=== PATIENT | male | born 1970 | race Caucasian/White ===

== ENCOUNTER 2022-11-13 17:16 | Inpatient (IN) | payer MEDICAID, SELFPAY ==
[2022-11-13 17:18] VITALS: BP 148/104; PULSE 124; RESP 18; TEMP 36.5; O2SAT 96; BMI 24.2
--- NOTE | 2022-11-13 17:29 | EX.ED.SAOD ---
HPI History of Present Illness Chief Complaint: Substance Abuse Detail of Chief Complaint: Alcohol detox Informant: patient Narrative Narrative: Patient presents to the emergency department requesting detox from alcohol. Patient states that he normally drinks at least 1024 ounce cans of hard cider daily. Patient last went through detox in March but at a different facility. Patient smokes marijuana occasionally. He is a smoker of cigarettes. Patient denies any abdominal pain or vomiting. His last drink was prior to arrival in the emergency department. [facility] Medical History (Updated 11/13/22 @ 18:[address] Constanza Osorio, ) Alcoholism High cholesterol HTN (hypertension) Allergy/AdvReac Type Severity Reaction Status Date / Time No Known Allergies Allergy Verified 11/13/22 17:18 Social History Smoking Status: Current every day smoker tobacco type: cigarettes ROS ROS ED Constitutional Constitutional ED: Reports systems reviewed and no addt'l complaints, except as documented; Denies body ache(s), change in weight or chills Eyes Eyes: Denies acute decrease in peripheral vision, change in vision, double vision or loss of vision ENT ENT ED: Reports none; Denies ear pain, lip swelling, loss taste/smell, neck pain, otalgia or sore throat Cardiovascular Cardiovascular: Reports none; Denies abdominal pain, chest pain with activity, leg edema, lightheadedness, palpitations, rapid heart rate or syncope Respiratory/Chest Respiratory/Chest: Reports none; Denies change in mental status, dry cough, dyspnea, hemoptysis, shortness of breath at rest or shortness of breath with exertion Gastrointestinal Gastrointestinal: Reports none; Denies abdominal pain, change in stool character, diarrhea, hematemesis, hematochezia, melena, rectal bleeding or vomiting Genitourinary Genitourinary ED: Reports none; Denies abdominal discomfort, anuria, dysuria, genital pain or polyuria Musculoskeletal Musculoskeletal: Reports none; Denies arthralgias, back pain, difficulty walking, extremity pain, muscle weakness or myalgias Integumentary Reports none; Denies abscess or rash Neurologic Neurologic: Reports none; Denies abnormal gait, confusion, focal weakness, frequent falls, headache(s), loss of vision, numbness, paresthesias, radicular pain, vertigo or weakness Psychiatric Psychiatric: Reports systems reviewed and no addt'l complaints, except as documented and none; Denies behavioral changes, confusion, difficulty concentrating, hallucinations, suicidal ideation, tactile hallucinations or visual hallucinations Endocrine Endocrinology: Denies none, cold intolerance, excessive sweating, fatigue or heat intolerance Hematologic/Lymphatic Hematologic/Lymphatic: Reports none; Denies anemia, easy bleeding or easy bruising Allergic/Immunologic Allergic/Immunologic ED: Denies as per HPI, none, lip swelling, mouth swelling, throat swelling, tongue swelling or hives EXAM Physical Exam Const Vital Signs: 11/13/22 17:18 11/13/22 18:24 Temperature 97.7 F L Temperature Source Temporal Pulse Rate 124 H 95 Respiratory Rate 18 13 Blood Pressure 148/104 H 123/90 H Blood Pressure Mean 118 101 Pulse Ox 96 99 Oxygen Delivery Method Room Air Room Air Positive well nourished and well developed General Appearance ED: well developed and NAD HEENT Reports TM's clear and moist mucous membranes normocephalic and atraumatic; Negative for trauma or tenderness Tympanic Membrane ED: Yes TM's clear Eyes PERRL and EOMs intact bilaterally General Eye ED: Negative for pale conjunctiva or scleral icterus Neck no lymphadenopathy, supple and no JVD General: Negative for tenderness Chest Wall inspection of chest normal and palpation of chest normal Chest: Negative for tenderness Resp normal respiratory effort and clear to auscultation bilaterally Effort and Inspection: Negative for respiratory distress or pain with movement Auscultation: Negative for rhonchi, wheezes or diminished lung sounds Cardio regular rate, regular rhythm, S1 normal heart sound, S2 normal heart sound and no murmurs Peripheral Pulses: pulses 2+ throughout GI normal to inspection, nondistended, normoactive bowel sounds, soft to palpation, non-tender, non-distended and no masses Back/Spine no CVA tenderness and no thoracic nor lumbar tenderness Extremity normal to inspection General Extremety ED: Negative for edema General Extremity: Negative for edema Neuro oriented x3, CN's II-XII intact bilaterally, no sensory deficits noted and gait normal Sensorium / Orientation: awake, alert, oriented to person, oriented to place and oriented to time Motor Exam: strength 5/5 throughout and strength abnormal Psych mental status grossly normal Skin no rashes or lesions noted and no wounds MDM MDM MDM Narrative Medical decision making narrative: IV line established on arrival. Patient had a CBC with differential that showed a normal white count and normal H&H. Urine drug screen and blood alcohol level ordered and pending. LFTs ordered and pending. Case will be discussed with hospitalist to evaluate patient for admission for alcohol intoxication and requesting detox. Lab Data Labs: Laboratory Results - last 24 hr 11/13/22 11/13/22 18:00 18:00 WBC 6.5 RBC 4.97 Hgb 15.4 Hct 44.1 MCV 88.7 MCH 31.0 MCHC 34.9 RDW Std Deviation 52.2 H RDW Coeff of Sarah 15.9 H Plt Count 220 MPV 8.7 Immature Gran % (Auto) 0.600 Neut % (Auto) 45.2 L Lymph % (Auto) 41.3 H [place] % (Auto) 9.1 Eos % (Auto) 2.9 Baso % (Auto) 0.9 Absolute Neuts (auto) 2.9 Absolute Lymphs (auto) 2.67 Nucleated RBC % 0 Ur Drug Screen Comment Discharge Plan Triage Chief Complaint: Substance Abuse ED Provider: Constanza Osorio Dx/Rx/DC Orders Clinical Impression: Alcohol intoxication, Admitted to alcohol detoxification center, History of hypertension, History of hypercholesterolemia Disposition Disposition: Acute Care Hospital [facility]
--- NOTE | 2022-11-13 18:10 | CM.ED ---
Addendum entered by Kelin Mccullough 11/13/22 19:13: RAKESH informed treatment navigator patient was admitted to [facility]. Sen to follow up for discharge planning. Kelin BARRIOS, ONEIL Original Note: Social Work Note Referral Source: Case find Referral Reason: detox SW met with patient and introduced herself and role as [facility] Window Framer. Patient was laying in hospital bed and agreeable to talk with SW. Patient explained he has been drinking majority of his life besides when he was in [employer]. Patient reports drinking at least 10 tall boys a day and drank prior to coming into ED. Patient reports this is the first time he is choosing to detox rather than being forced to detox and is hopeful for this experience although patient reports some nerves regarding withdrawal. SW provided patient with emotional support and reviewed the [facility] program and rules including his personal items being locked up, no outside items and meeting with Sen to coordinate discharge planning. Patient was in agreement with rules and reports an understanding. No other needs voiced at this time. ONEIL Mcduffie
[2022-11-13 18:16] LABS: Absolute Lymphocyte Count 2.67 X10^3/uL (0.83-4.51); Absolute Neutrophil Count 2.9 X10^3/uL (2.0-7.7); Basophil# 0.06 X10^3/uL; Basophil% 0.9 % (0-1); Eosinophil# 0.19 X10^3/uL; Eosinophils% 2.9 % (0-5); Hematocrit 44.1 % (40-54); Hemoglobin 15.4 g/dL (13.0-16.5); Lymphocyte # 2.67 X10^3/ul (0.83-4.51); Lymphocyte % 41.3 % (19-41); Mean Corp Hgb Conc 34.9 g/dL (32-36); Mean Corpuscular Volume 88.7 fL (80-94); Mean Platelet Vol. 8.7 fl (6.2-12.0); Monocyte# 0.59 X10^3/uL; Monocyte% 9.1 % (0-10); NRBC Flagged by Analyzer 0 % (0-5); Neutrophil # 2.91 X10^3/uL (2.7-7.7); Neutrophil % 45.2 % (47-70); Platelet Count 220 K/mm3 (150-450); RBC Distribution Width CV 15.9 % (11.6-14.6); RBC Distribution Width SD 52.2 fl (35.1-43.9); Red Blood Count 4.97 M/mm3 (4.6-6.2); White Blood Count 6.5 K/mm3 (4.4-11.0)
[2022-11-13] MEDS: 0.9% Normal Saline 1,000 ML 150 ML IV (18:19)
[2022-11-13 18:24] VITALS: BP 123/90; PULSE 95; RESP 13; O2SAT 99
--- NOTE | 2022-11-13 18:34 | ED.RN ---
okay to give information to Sherry, at [phone]
[2022-11-13 18:36] LABS: ALB/GLOB Ratio 1.2 RATIO (0.9-2.4); AST(SGOT) 49 U/L (15-37); Alanine Aminotransfer ALT/SGPT 43 U/L (16-61); Albumin, Serum 4.1 g/dL (3.2-5.0); Alkaline Phosphatase 134 U/L (45-117); Anion Gap 11 (5-15); BUN 6 mg/dL (7-18); BUN/Creat Ratio 6.3 RATIO (10-20); Calcium,Total 8.6 mg/dL (8.5-10.1); Chloride 101 mmol/L (98-107); Creatinine, Serum 0.95 mg/dL (0.70-1.30); EST Glomerular Filtration Rate 89 mL/min (>60); Est Glom Filt Rate - Afr Amer 108 mL/min (>60); Estimated Creatinine Clearance 93.03 ml/min; Globulin 3.4 g/dL (2.2-4.2); Glucose 110 mg/dL (74-106); Lipase 158 U/L (73-393); Potassium 3.7 mmol/L (3.5-5.1); Protein, Total 7.5 g/dL (6.4-8.2); Sodium Level 138 mmol/L (136-145)
[2022-11-13 18:38] LABS: Amphetamine Urine VISTA NEGATIVE (<1000 ng/mL); Barbiturate Urine VISTA NEGATIVE (< 200 ng/mL); Benzodiazepine Urine VISTA NEGATIVE (< 200 ng/mL); Cocaine Urine VISTA NEGATIVE (< 300 ng/mL); Ecstacy Urine VISTA NEGATIVE (< 500 ng/mL); Methadone Urine VISTA NEGATIVE (< 300 ng/mL); PCP Urine VISTA NEGATIVE (< 25 ng/mL); THC Urine VISTA POSITIVE (< 50 ng/mL); Vista UDS pH Range 6
--- NOTE | 2022-11-13 18:39 | PCM.HP.STD ---
HPI - General General Date of Admission: 11/13/22 Date of Service: 11/13/22 Chief Complaint: Desire for detoxification HPI Narrative ISAIAS HOLLAND, is a 52 M with past medical history single for alcohol dependence presented with desire for detoxification. Per patient he drinks almost 20 cans of beer a day. He had previously undergone detoxification at another facility. Patient denied any tremors. Last alcohol use was on the morning of his presentation. Patient was admitted to regular nursing floor as a case of alcohol dependence at risk for withdrawal. [facility] Medical History Alcoholism High cholesterol HTN (hypertension) Home Medications albuterol sulfate 90 mcg/actuation aerosol inhaler 2 puff inhalation Q6H PRN Wheezing 11/13/22 [History Last Taken Unknown] amlodipine 5 mg tablet 5 mg PO DAILY 11/13/22 [History Last Taken Unknown] atorvastatin 40 mg tablet 40 mg PO DAILY 11/13/22 [History Last Taken Unknown] budesonide-formoterol HFA 160 mcg-4.5 mcg/actuation aerosol inhaler (Symbicort) 2 puff inhalation BID 11/13/22 [History Last Taken Unknown] cholecalciferol (vitamin D3) 50 mcg (2,000 unit) capsule (Vitamin D3) 50 mcg PO DAILY 11/13/22 [History Last Taken Unknown] famotidine 20 mg tablet (Pepcid) 20 mg PO QHS 11/13/22 [History Last Taken Unknown] hydroxyzine pamoate 25 mg capsule (Vistaril) 25 mg PO TID PRN Anxiety 11/13/22 [History Last Taken Unknown] mirtazapine 15 mg tablet (Remeron) 15 mg PO QHS 11/13/22 [History Last Taken Unknown] naltrexone microspheres 380 mg intramuscular suspension,extended release 380 mg IM QMONTH 11/13/22 [History Last Taken Unknown] omeprazole 40 mg capsule,delayed release 40 mg PO DAILY 11/13/22 [History Last Taken Unknown] quetiapine 100 mg tablet 100 mg PO QHS 11/13/22 [History Last Taken Unknown] tiotropium bromide 2.5 mcg/actuation mist for inhalation (Spiriva Respimat) 2 puff inhalation DAILY 11/13/22 [History Last Taken Unknown] Allergy/AdvReac Type Severity Reaction Status Date / Time No Known Allergies Allergy Verified 11/13/22 17:18 Family History (Updated 11/13/22 @ 18:[address] Bhavin Mendez MD) Father Heart disease Mother Cancer Social History Smoking Status: Current every day smoker tobacco type: cigarettes ROS ROS Narrative GENERAL: denies fever, chills, night sweats, weight loss, anorexia HEENT: denies headache, sinus congestion, or drainage, dysphagia RESPIRATORY: denies cough, sputum production, shortness of breath, dyspnea on exertion CARDIAC: denies chest pain, palpitations, orthopnea, PND GASTROINTESTINAL: denies abdominal pain, nausea, vomiting, melena, GENITOURINARY: denies dysuria, urgency, frequency, heamaturia EXTREMITY: denies swelling MUSCULOSKELETAL: denies current joint pain or tenderness NEUROLOGIC: denies focal numbness, weakness, tingling HEMATOLOGIC: denies easy bruising and/or hemorrhage INTEGUMENT: denies rashes PSYCHIATRIC: denies suicidal or homicidal ideation Vital Signs Vital Signs Vital Signs: 11/13/22 17:18 11/13/22 18:24 Temperature 97.7 F L Temperature Source Temporal Pulse Rate 124 H 95 Respiratory Rate 18 13 Blood Pressure 148/104 H 123/90 H Blood Pressure Mean 118 101 Pulse Ox 96 99 Oxygen Delivery Method Room Air Room Air Weight Weight: 74.389 kg Body Mass Index (BMI) 24.2 Physical Exam Narrative GENERAL: cooperative HEENT: Atraumatic; normocephalic EYES; Anicteric, Normal Conjunctiva NECK; supple, normal thyroid, RESPIRATORY: Diminished to auscultation CARDIOVASCULAR: Regular S1 S2, GI: soft, normoactive bowel sounds, : No Renal angle tenderness; EXTREMITIES: No edema, no clubbing, MUSCULOSKELETAL: no muscle wasting NEURO: Awake; no lateralizing signs. SKIN: Extensive multiple tattoos on arms PSYCH; Flat affect Results Lab / Micro Data Result Diagrams: 11/13/22 18:00 11/13/22 18:00 Labs: Laboratory Results - last 24 hr 11/13/22 18:00: WBC 6.5, RBC 4.97, Hgb 15.4, Hct 44.1, MCV 88.7, MCH 31.0, MCHC 34.9, RDW Std Deviation 52.2 H, RDW Coeff of Sarah 15.9 H, Plt Count 220, MPV 8.7, Immature Gran % (Auto) 0.600, Neut % (Auto) 45.2 L, Lymph % (Auto) 41.3 H, [place] % (Auto) 9.1, Eos % (Auto) 2.9, Baso % (Auto) 0.9, Absolute Neuts (auto) 2.9, Absolute Lymphs (auto) 2.67, Nucleated RBC % 0 11/13/22 18:00: Sodium 138, Potassium 3.7, Chloride 101, Carbon Dioxide 26.0, Anion Gap 11, BUN 6 L, Creatinine 0.95, Estim Creat Clear Calc 93.03, Est GFR (MDRD) Af Amer 108, Est GFR (MDRD) Non-Af 89, BUN/Creatinine Ratio 6.3 L, Glucose 110 H, Calcium 8.6, Total Bilirubin 0.60, AST 49 H, ALT 43, Alkaline Phosphatase 134 H, Total Protein 7.5, Albumin 4.1, Globulin 3.4, Albumin/Globulin Ratio 1.2, Lipase 158 11/13/22 18:00: Urine Opiates Screen NEGATIVE, Urine Methadone Screen NEGATIVE, Ur Barbiturates Screen NEGATIVE, Ur Phencyclidine Scrn NEGATIVE, Ur Amphetamines Screen NEGATIVE, MDMA (Ecstasy) Screen NEGATIVE, U Benzodiazepines Scrn NEGATIVE, Urine Cocaine Screen NEGATIVE, U Cannabinoids Screen POSITIVE H, Ur Drug Screen Comment Assessment & Plan Assessment/Plan (1) Alcohol intoxication: PLAN: Plan Patient is a 52-year-old gentleman with history of chronic alcohol dependence presented with desire for detoxification 1. Chronic alcohol dependence ? Presented with desire for detoxification. Patient has been admitted to regular nursing floor managed with phenobarb taper in addition to adjuvant medications. Patient was also counseled on cessation 2. Hypertension - Blood pressure controlled, home medications continued with dose adjustment as needed 3. Dyslipidemia -Patient is on statin therapy, continued at home dose 4. GERD ? On PPI 5. COPD Continued patient aerosol treatment 6. Tobacco dependence - Counseled on cessation, offered nicotine patch for tobacco cravings 7. Lung mass ? Patient apparently scheduled to undergo subsequent evaluation with imaging studies ordered by PCP 8. DVT prophylaxis ? Low risk, did encourage early ambulation Time spent in the patient's overall evaluation,decision-making process, review of diagnostic data, adjustment of management, discussion with other providers, nursing nursing and ancillary staff involved in patient's care documentation, 55 minutes Charges/Coding Visit Charges Inpatient E&M: 55126 Init Hosp L2
[2022-11-13 18:56] VITALS: BP 123/90; PULSE 98; RESP 16; TEMP 36.6; O2SAT 96
[2022-11-13 19:55] VITALS: BMI 24.0
[2022-11-13] MEDS: Lactated Ringers 1,000 ML 125 ML IV (20:04)
[2022-11-13] MEDS: Phenobarbital 32.4 MG Tablet 64.8 MG PO ×2 (20:07→23:44)
[2022-11-13 20:10] VITALS: BP 121/74; PULSE 96; RESP 18; TEMP 36.5; O2SAT 93
[2022-11-13] MEDS: QUEtiapine 100 MG Tablet PO (21:12)
[2022-11-13] MEDS: Mirtazapine 15 MG Tablet PO (21:12)
[2022-11-13] MEDS: Dicyclomine 10 MG Capsule 20 MG PO (23:44)
[2022-11-13] MEDS: Ondansetron 8 MG Tablet PO (23:45)
[2022-11-13] MEDS: hydrOXYzine PAM 25 MG Capsule 50 MG PO (23:45)
[2022-11-14 02:41] VITALS: BP 124/78; PULSE 93; RESP 18; TEMP 36.6; O2SAT 94
[2022-11-14] MEDS: Mag Hydrox/Al Hydrox/Simeth 30 ML UDC PO (03:06)
[2022-11-14] MEDS: Gabapentin 300 MG Capsule PO ×2 (03:47→12:08)
[2022-11-14] MEDS: Phenobarbital 32.4 MG Tablet 64.8 MG PO ×6 (03:47→23:30)
[2022-11-14] MEDS: LORazepam 2 MG/ML Syringe IV (04:27)
--- NOTE | 2022-11-14 07:41 | PCM.PN.HOSP ---
Reason for Visit Reason for Visit: Diagnoses Alcohol use, unspecified with intoxication, unspecified (11/13/22) Subjective Subjective Is a 52-year-old gentleman with history of chronic alcohol dependence admitted with desire to undergo detoxification admitted to regular nursing floor currently on phenobarb taper Objective Data Objective Data Vital Signs: Vital Signs Temp Pulse Resp BP Pulse Ox O2 Del Method 97.9 F 93 18 124/78 H 94 Room Air 11/14/22 02:41 11/14/22 02:41 11/14/22 02:41 11/14/22 02:41 11/14/22 02:41 11/14/22 02:41 Oxygen Delivery Method Room Air Weight: 73.9 kg Body Mass Index (BMI) 24.0 Intake & Output: Intake and Output for Last 24 Hours 11/12/22 11/13/22 11/14/22 23:59 23:59 23:59 Intake Total 282.5 / 282.5 970.83 / 970.83 Output Total 200 / 200 200 / 200 Balance 82.5 / 82.5 770.83 / 770.83 Lab / Micro Data Result Diagrams: 11/13/22 18:00 11/13/22 18:00 Labs: Laboratory Results - last 24 hr 11/13/22 18:00: WBC 6.5, RBC 4.97, Hgb 15.4, Hct 44.1, MCV 88.7, MCH 31.0, MCHC 34.9, RDW Std Deviation 52.2 H, RDW Coeff of Sarah 15.9 H, Plt Count 220, MPV 8.7, Immature Gran % (Auto) 0.600, Neut % (Auto) 45.2 L, Lymph % (Auto) 41.3 H, [place] % (Auto) 9.1, Eos % (Auto) 2.9, Baso % (Auto) 0.9, Absolute Neuts (auto) 2.9, Absolute Lymphs (auto) 2.67, Nucleated RBC % 0 11/13/22 18:00: Sodium 138, Potassium 3.7, Chloride 101, Carbon Dioxide 26.0, Anion Gap 11, BUN 6 L, Creatinine 0.95, Estim Creat Clear Calc 93.03, Est GFR (MDRD) Af Amer 108, Est GFR (MDRD) Non-Af 89, BUN/Creatinine Ratio 6.3 L, Glucose 110 H, Calcium 8.6, Total Bilirubin 0.60, AST 49 H, ALT 43, Alkaline Phosphatase 134 H, Total Protein 7.5, Albumin 4.1, Globulin 3.4, Albumin/Globulin Ratio 1.2, Lipase 158 11/13/22 18:00: Ethyl Alcohol 232.0 11/13/22 18:00: Urine Opiates Screen NEGATIVE, Urine Methadone Screen NEGATIVE, Ur Barbiturates Screen NEGATIVE, Ur Phencyclidine Scrn NEGATIVE, Ur Amphetamines Screen NEGATIVE, MDMA (Ecstasy) Screen NEGATIVE, U Benzodiazepines Scrn NEGATIVE, Urine Cocaine Screen NEGATIVE, U Cannabinoids Screen POSITIVE H, Ur Drug Screen Comment Physical Exam Narrative GENERAL: cooperative HEENT: Atraumatic; normocephalic EYES; Anicteric, Normal Conjunctiva NECK; supple, normal thyroid, RESPIRATORY: Diminished to auscultation CARDIOVASCULAR: Regular S1 S2, GI: soft, normoactive bowel sounds, : No Renal angle tenderness; EXTREMITIES: No edema, no clubbing, MUSCULOSKELETAL: no muscle wasting NEURO: Awake; no lateralizing signs. SKIN: Extensive multiple tattoos on arms PSYCH; Flat affect Assessment & Plan Assessment/Plan (1) Alcohol intoxication: PLAN: Plan Patient is a 52-year-old gentleman with history of chronic alcohol dependence presented with desire for detoxification 1. Chronic alcohol dependence ? Presented with desire for detoxification. Patient has been admitted to regular nursing floor managed with phenobarb taper in addition to adjuvant medications. Patient was also counseled on cessation ? 11/14/2022 patient has tolerated phenobarb taper well so far 2. Hypertension - Blood pressure controlled, home medications continued with dose adjustment as needed 3. Dyslipidemia -Patient is on statin therapy, continued at home dose 4. GERD ? On PPI 5. COPD Continued patient aerosol treatment 6. Tobacco dependence - Counseled on cessation, offered nicotine patch for tobacco cravings 7. Lung mass ? Patient apparently scheduled to undergo subsequent evaluation with imaging studies ordered by PCP 8. DVT prophylaxis ? Low risk, did encourage early ambulation Time spent in the patient's overall evaluation,decision-making process, review of diagnostic data, adjustment of management, discussion with other providers, nursing nursing and ancillary staff involved in patient's care documentation, 35 minutes Charges/Coding Visit Charges Inpatient E&M: 62022 Subs Hosp L2
[2022-11-14 08:57] VITALS: BP 128/78; PULSE 86; RESP 18; TEMP 36.8; O2SAT 96
[2022-11-14] MEDS: Pantoprazole Sodium 40 MG Tablet PO (09:04)
[2022-11-14] MEDS: Dicyclomine 10 MG Capsule 20 MG PO (09:04)
[2022-11-14] MEDS: amLODIPine 5 MG Tablet PO (09:04)
[2022-11-14] MEDS: Ondansetron 8 MG Tablet PO (09:04)
[2022-11-14] MEDS: Atorvastatin Calcium 40 MG Tablet PO (09:05)
[2022-11-14] MEDS: Thiamine Hydrochloride 100 MG Tablet PO (09:05)
[2022-11-14] MEDS: Folic Acid 1 MG Tablet PO (09:05)
[2022-11-14] MEDS: Cholecalciferol (VIT D3) 25 MCG TABLET (1,000 UNITS) 50 MCG PO (09:05)
[2022-11-14 12:05] VITALS: BP 133/85; PULSE 83; RESP 18; TEMP 36.5; O2SAT 98
--- NOTE | 2022-11-14 12:27 | ADDICTION ---
TW met with pt to complete the ASAM, AUDIT, DUDIT, MSE, and begin d/c planning. Pt stated he had 7 months of sobriety in 2021, relapsed in June, and has been drinking ever since. 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 Clinician is providing client with resources in [facility] and will discuss scheduling an appointment during meeting tomorrow. Pt already has a f/u appt with his psychiatrist on 11/26. Pt noted no transportation needs at this time.
[2022-11-14 16:04] VITALS: BP 125/82; PULSE 85; RESP 18; TEMP 36.9; O2SAT 94
[2022-11-14] MEDS: 0.9% Saline Lock 10 ML Syringe IV (16:31)
[2022-11-14] MEDS: KCL 20MEQ in D5.45NS 20 MEQ/1,000 ML IV.SOLN. 100 MEQ IV (16:31)
[2022-11-14 20:06] VITALS: BP 126/81; PULSE 81; RESP 18; TEMP 36.2; O2SAT 92
[2022-11-14] MEDS: QUEtiapine 100 MG Tablet PO (20:43)
[2022-11-14] MEDS: Mirtazapine 15 MG Tablet PO (20:43)
[2022-11-15] VITALS (11 sets, daily range): BP systolic 111–145; BP diastolic 74–86; PULSE 67–95; RESP 16–18; TEMP 36.6–37.1; O2SAT 85–95
[2022-11-15] MEDS: KCL 20MEQ in D5.45NS 20 MEQ/1,000 ML IV.SOLN. 100 MEQ IV (01:22)
[2022-11-15] MEDS: Phenobarbital 32.4 MG Tablet 64.8 MG PO ×5 (03:32→20:56)
--- NOTE | 2022-11-15 03:46 | NURSING ---
This RN went in to pt room to obtain vital signs. SpO2 was reading 85% on room air. This RN applied 2L of oxygen to obtain a reading of 89% SpO2. I increased oxygen level to 3L and obtained a reading of 94%. Pt says he is not short of breath. Will continue to monitor.
--- NOTE | 2022-11-15 07:07 | PCM.PN.HOSP ---
Reason for Visit Reason for Visit: Diagnoses Alcohol use, unspecified with intoxication, unspecified (11/13/22) Subjective Subjective Patient did receive IV fluid resuscitation the day prior following decreased urinary output. Seen this a.m. appears to be tolerating the phenobarb taper well so far. Objective Data Objective Data Vital Signs: Vital Signs Temp Pulse Resp BP Pulse Ox O2 Del Method O2 Flow Rate 98.4 F 67 18 111/78 94 Nasal Cannula 3 11/15/22 03:30 11/15/22 03:30 11/15/22 03:30 11/15/22 03:30 11/15/22 03:45 11/15/22 03:45 11/15/22 03:45 Oxygen Flow Rate (L/min) 3 Oxygen Delivery Method Nasal Cannula Weight: 73.9 kg Body Mass Index (BMI) 24.0 Intake & Output: Intake and Output for Last 24 Hours 11/13/22 11/14/22 11/15/22 23:59 23:59 23:59 Intake Total 282.5 / 282.5 1170.83 / 1170.83 885 / 885 Output Total 200 / 200 475 / 475 700 / 700 Balance 82.5 / 82.5 695.83 / 695.83 185 / 185 Lab / Micro Data Result Diagrams: 11/13/22 18:00 11/13/22 18:00 Physical Exam Narrative GENERAL: cooperative HEENT: Atraumatic; normocephalic EYES; Anicteric, Normal Conjunctiva NECK; supple, normal thyroid, RESPIRATORY: Diminished to auscultation CARDIOVASCULAR: Regular S1 S2, GI: soft, normoactive bowel sounds, : No Renal angle tenderness; EXTREMITIES: No edema, no clubbing, MUSCULOSKELETAL: no muscle wasting NEURO: Awake; no lateralizing signs. SKIN: Extensive multiple tattoos on arms PSYCH; Flat affect Assessment & Plan Assessment/Plan (1) Alcohol intoxication: PLAN: Plan Patient is a 52-year-old gentleman with history of chronic alcohol dependence presented with desire for detoxification 1. Chronic alcohol dependence ? Presented with desire for detoxification. Patient has been admitted to regular nursing floor managed with phenobarb taper in addition to adjuvant medications. Patient was also counseled on cessation ? 11/14/2022 patient has tolerated phenobarb taper well so far ? 11/15/2022. Patient seen no new complaints we will continue with current phenobarb taper regimen 2. Hypertension - Blood pressure controlled, home medications continued with dose adjustment as needed 3. Dyslipidemia -Patient is on statin therapy, continued at home dose 4. GERD ? On PPI 5. COPD Continued patient aerosol treatment 6. Tobacco dependence - Counseled on cessation, offered nicotine patch for tobacco cravings 7. Lung mass ? Patient apparently scheduled to undergo subsequent evaluation with imaging studies ordered by PCP 8. DVT prophylaxis ? Low risk, did encourage early ambulation Time spent in the patient's overall evaluation,decision-making process, review of diagnostic data, adjustment of management, discussion with other providers, nursing nursing and ancillary staff involved in patient's care documentation, 35 minutes Charges/Coding Visit Charges Inpatient E&M: 84184 Subs Hosp L2
[2022-11-15] MEDS: Ipratropium/Albuterol Sulfate 3 ML AMPUL.NEB INHALATION ×3 (07:39→18:32)
[2022-11-15] MEDS: Budesonide Respules 0.5 MG/2 ML AMPUL.NEB. INHALATION ×2 (07:39→18:32)
[2022-11-15] MEDS: Thiamine Hydrochloride 100 MG Tablet PO (08:39)
[2022-11-15] MEDS: Folic Acid 1 MG Tablet PO (08:39)
[2022-11-15] MEDS: Cholecalciferol (VIT D3) 25 MCG TABLET (1,000 UNITS) 50 MCG PO (11:10)
[2022-11-15] MEDS: amLODIPine 5 MG Tablet PO (11:10)
[2022-11-15] MEDS: Atorvastatin Calcium 40 MG Tablet PO (11:10)
[2022-11-15] MEDS: Pantoprazole Sodium 40 MG Tablet PO (11:10)
[2022-11-15] MEDS: hydrOXYzine PAM 25 MG Capsule 50 MG PO ×2 (11:13→18:58)
--- NOTE | 2022-11-15 14:28 | ADDICTION ---
TW met with pt to f/u on d/c planning. Pt and TW called [facility] together, located in [place] where client is from. [facility] informed pt/TW that they do offer some evening hours, which client was requesting and they only do walk in assessments. Pt and TW discussed pt going to do an assessment at [facility] tomorrow as soon as he is released from detox. Pt was agreeable and stated he knew he needed additional support other than just not drinking. Pt also has a f/u psychiatry appt scheduled as well. No transportation needs noted.
[2022-11-15] MEDS: Loperamide 2 MG Capsule PO (16:15)
[2022-11-15] MEDS: Gabapentin 300 MG Capsule PO (18:58)
[2022-11-15] MEDS: Dicyclomine 10 MG Capsule 20 MG PO (18:58)
[2022-11-15] MEDS: Ondansetron 8 MG Tablet PO (20:56)
[2022-11-15] MEDS: QUEtiapine 100 MG Tablet PO (20:56)
[2022-11-15] MEDS: Ibuprofen 600 MG Tablet PO (20:56)
[2022-11-15] MEDS: traZODone 100 MG Tablet PO (20:56)
[2022-11-15] MEDS: Mirtazapine 15 MG Tablet PO (20:57)
[2022-11-16 00:52] VITALS: BP 118/70; PULSE 93; RESP 20; TEMP 37; O2SAT 91
[2022-11-16] MEDS: Phenobarbital 32.4 MG Tablet 64.8 MG PO ×3 (00:54→10:18)
[2022-11-16 04:45] VITALS: BP 134/78; PULSE 88; RESP 18; TEMP 37.4; O2SAT 92
[2022-11-16 06:30] VITALS: PULSE 79; RESP 18; O2SAT 92
[2022-11-16] MEDS: Ipratropium/Albuterol Sulfate 3 ML AMPUL.NEB INHALATION ×2 (06:42→12:52)
[2022-11-16] MEDS: Budesonide Respules 0.5 MG/2 ML AMPUL.NEB. INHALATION (06:43)
--- NOTE | 2022-11-16 07:26 | PCM.PN.HOSP ---
Reason for Visit Reason for Visit: Diagnoses Alcohol use, unspecified with intoxication, unspecified (11/13/22) Subjective Subjective Patient seen had a relatively uneventful night plans for patient to be assessed for possible discharge Objective Data Objective Data Vital Signs: Vital Signs Temp Pulse Resp BP Pulse Ox O2 Del Method O2 Flow Rate 99.3 F H 88 18 134/78 H 92 Room Air 3 11/16/22 04:45 11/16/22 04:45 11/16/22 04:45 11/16/22 04:45 11/16/22 04:45 11/16/22 04:45 11/15/22 03:45 Oxygen Flow Rate (L/min) 3 Oxygen Delivery Method Room Air Weight: 73.9 kg Body Mass Index (BMI) 24.0 Intake & Output: Intake and Output for Last 24 Hours 11/14/22 11/15/22 11/16/22 23:59 23:59 23:59 Intake Total 1170.83 / 1170.83 2985 / 2985 Output Total 475 / 475 700 / 700 Balance 695.83 / 695.83 2285 / 2285 Lab / Micro Data Result Diagrams: 11/13/22 18:00 11/13/22 18:00 Physical Exam Narrative GENERAL: cooperative HEENT: Atraumatic; normocephalic EYES; Anicteric, Normal Conjunctiva NECK; supple, normal thyroid, RESPIRATORY: Diminished to auscultation CARDIOVASCULAR: Regular S1 S2, GI: soft, normoactive bowel sounds, : No Renal angle tenderness; EXTREMITIES: No edema, no clubbing, MUSCULOSKELETAL: no muscle wasting NEURO: Awake; no lateralizing signs. SKIN: Extensive multiple tattoos on arms PSYCH; Flat affect Assessment & Plan Assessment/Plan (1) Alcohol intoxication: PLAN: Plan Patient is a 52-year-old gentleman with history of chronic alcohol dependence presented with desire for detoxification 1. Chronic alcohol dependence ? Presented with desire for detoxification. Patient has been admitted to regular nursing floor managed with phenobarb taper in addition to adjuvant medications. Patient was also counseled on cessation ? 11/14/2022 patient has tolerated phenobarb taper well so far ? 11/15/2022. Patient seen no new complaints we will continue with current phenobarb taper regimen 2. Hypertension - Blood pressure controlled, home medications continued with dose adjustment as needed 3. Dyslipidemia -Patient is on statin therapy, continued at home dose 4. GERD ? On PPI 5. COPD Continued patient aerosol treatment 6. Tobacco dependence - Counseled on cessation, offered nicotine patch for tobacco cravings 7. Lung mass ? Patient apparently scheduled to undergo subsequent evaluation with imaging studies ordered by PCP 8. DVT prophylaxis ? Low risk, did encourage early ambulation Time spent in the patient's overall evaluation,decision-making process, review of diagnostic data, adjustment of management, discussion with other providers, nursing nursing and ancillary staff involved in patient's care documentation, 35 minutes Charges/Coding Visit Charges Inpatient E&M: 77949 Subs Hosp L2
--- NOTE | 2022-11-16 07:28 | DS.PCM_ITS ---
Providers Date of Admission: 11/13/22 Date of Discharge: 11/16/22 Primary Care Physician: No Primary Care Phys Reason For Visit: ALCOHOL WITHDRAWAL Diagnosis Discharge Diagnosis (1) Alcohol intoxication: Status: Acute Code(s): F10.929 - Alcohol use, unspecified with intoxication, unspecified Plan Patient is a 52-year-old gentleman with history of chronic alcohol dependence presented with desire for detoxification 1. Chronic alcohol dependence ? Presented with desire for detoxification. Patient has been admitted to regular nursing floor managed with phenobarb taper in addition to adjuvant medic ations. Patient was also counseled on cessation ? 11/14/2022 patient has tolerated phenobarb taper well so far ? 11/15/2022. Patient seen no new complaints we will continue with current phenobarb taper regimen ? 11/16/2022; plan for patient to follow-up with outpatient therapy 2. Hypertension - Blood pressure controlled, home medications continued with dose adjustment as needed 3. Dyslipidemia -Patient is on statin therapy, continued at home dose 4. GERD ? On PPI 5. COPD Continued patient aerosol treatment 6. Tobacco dependence - Counseled on cessation, offered nicotine patch for tobacco cravings 7. Lung mass ? Patient apparently scheduled to undergo subsequent evaluation with imaging studies ordered by PCP 8. DVT prophylaxis ? Low risk, did encourage early ambulation Time spent in the patient's overall evaluation,decision-making process, review of diagnostic data, adjustment of management, discussion with other providers, nursing nursing and ancillary staff involved in patient's care documentation, 35 minutes Medications at Discharge Home Medications albuterol sulfate 90 mcg/actuation aerosol inhaler 2 puff inhalation Q6H PRN Wheezing 11/13/22 amlodipine 5 mg tablet 5 mg PO DAILY bp 11/13/22 atorvastatin 40 mg tablet 40 mg PO DAILY cholesterol 11/13/22 budesonide-formoterol HFA 160 mcg-4.5 mcg/actuation aerosol inhaler (Symbicort) 2 puff inhalation BID sob 11/13/22 cholecalciferol (vitamin D3) 50 mcg (2,000 unit) capsule (Vitamin D3) 50 mcg PO DAILY supplement 11/13/22 famotidine 20 mg tablet (Pepcid) 20 mg PO QHS GERD 11/13/22 hydroxyzine pamoate 25 mg capsule (Vistaril) 25 mg PO TID PRN Anxiety 11/13/22 mirtazapine 15 mg tablet (Remeron) 15 mg PO QHS mood 11/13/22 omeprazole 40 mg capsule,delayed release 40 mg PO DAILY GERD 11/13/22 quetiapine 100 mg tablet 100 mg PO QHS mood 11/13/22 tiotropium bromide 2.5 mcg/actuation mist for inhalation (Spiriva Respimat) 2 puff inhalation DAILY sob 11/13/22 Hospital Course Summary of Care Provided Minutes Spent on Discharge: 35 Physical Exam Narrative GENERAL: cooperative HEENT: Atraumatic; normocephalic EYES; Anicteric, Normal Conjunctiva NECK; supple, normal thyroid, RESPIRATORY: Diminished to auscultation CARDIOVASCULAR: Regular S1 S2, GI: soft, normoactive bowel sounds, : No Renal angle tenderness; EXTREMITIES: No edema, no clubbing, MUSCULOSKELETAL: no muscle wasting NEURO: Awake; no lateralizing signs. SKIN: Extensive multiple tattoos on arms PSYCH; Flat affect Weight / BMI Weight Weight: 73.9 kg Body Mass Index (BMI) 24.0 ABG / Lab / Microbiology Data Result Diagrams: 11/13/22 18:00 11/13/22 18:00 D/C Instructions Discharge Diet: No restrictions Discharge Activity: Return to Normal Activity Call your doctor if you observe: Fever of 101 or Higher, Shortness of breath, Fainting spells and Chest pain Meaningful Use Info Meaningful Use Diagnoses (Choose all that apply): None applicable Discharge Plan Admission Admit Date/Time: 11/13/22 18:36 Attending Provider: Bhavin Mendez Primary Care Provider: Care Physician,No Primary Discharge Orders/Prescriptions Prescriptions: Continued atorvastatin 40 mg Tablet 40 mg PO DAILY amlodipine 5 mg Tablet 5 mg PO DAILY omeprazole 40 mg Capsule,Delayed Release(Dr/Ec) 40 mg PO DAILY famotidine [Pepcid] 20 mg Tablet 20 mg PO QHS mirtazapine [Remeron] 15 mg Tablet 15 mg PO QHS albuterol sulfate 90 mcg/actuation Hfa Aerosol Inhaler 2 puff INHALATION Q6H PRN (Reason: Wheezing) hydroxyzine pamoate [Vistaril] 25 mg Capsule 25 mg PO TID PRN (Reason: Anxiety) budesonide-formoterol [Symbicort] 160-4.5 mcg/actuation Hfa Aerosol Inhaler 2 puff INHALATION BID cholecalciferol (vitamin D3) [Vitamin D3] 50 mcg (2,000 unit) Capsule 50 mcg PO DAILY quetiapine 100 mg Tablet 100 mg PO QHS Spiriva Respimat 2.5 mcg/actuation Mist 2 puff INHALATION DAILY Referrals / Follow Up: Care Physician,No Primary [Primary Care Provider] - Disposition Disposition (needs filled in before D/C Order can be placed): Home, Self Care Charges/Coding Visit Charges Inpatient E&M: 45239 Disch Hosp >30min
[2022-11-16 07:54] VITALS: BP 111/80; PULSE 86; RESP 16; TEMP 36.6; O2SAT 92
[2022-11-16] MEDS: Folic Acid 1 MG Tablet PO (08:05)
[2022-11-16] MEDS: Thiamine Hydrochloride 100 MG Tablet PO (08:05)
[2022-11-16] MEDS: Cholecalciferol (VIT D3) 25 MCG TABLET (1,000 UNITS) 50 MCG PO (10:11)
[2022-11-16] MEDS: Pantoprazole Sodium 40 MG Tablet PO (10:11)
[2022-11-16] MEDS: Atorvastatin Calcium 40 MG Tablet PO (10:12)
[2022-11-16] MEDS: amLODIPine 5 MG Tablet PO (10:12)
[2022-11-16 12:58] VITALS: PULSE 74; RESP 18; O2SAT 94
[2022-11-16 13:44] VITALS: BP 111/78; PULSE 91; RESP 16; TEMP 36.8; O2SAT 92
== END 2022-11-16 14:47 | disposition home or self-care (01) | DRG 775 ==
LOC: ED 18:52 → MS3 19:12
PROVIDERS: Admitting Provider Internal Medicine; Emergency Provider Emergency Medicine; Visit Provider Internal Medicine
DX: F10.239 Alcohol dependence with withdrawal, unspecified (principal); E78.00 Pure hypercholesterolemia, unspecified; J44.9 Chronic obstructive pulmonary disease, unspecified; F10.229 Alcohol dependence with intoxication, unspecified; K21.9 Gastro-esophageal reflux disease without esophagitis; F17.210 Nicotine dependence, cigarettes, uncomplicated; I10 Essential (primary) hypertension; Y90.7 Blood alcohol level of 200-239 mg/100 ml; R91.8 Other nonspecific abnormal finding of lung field; Z79.899 Other long term (current) drug therapy
CPT/HCPCS: 80053; 80307; 82077; 83690; 85025; 94640; 99285; 99406; J7030; J7120; A4216